=== PATIENT | male | born 1965 | race Caucasian/White ===

== ENCOUNTER 2022-04-27 19:40 | Emergency (ER) | payer OTHER ==
[2022-04-27 19:46] VITALS: BP 111/69; PULSE 68; RESP 17; TEMP 97.6; BMI 26.6
== END 2022-04-27 23:30 | disposition left against medical advice (07) ==
LOC: JER 19:40
DX: R55 Syncope and collapse (principal); R11.10 Vomiting, unspecified
CPT/HCPCS: 93005; 93010; 99283-25